=== PATIENT | female | born 1960 ===

== ENCOUNTER → 2024-05-04 | Outpatient (CLI) | payer OTHER | LOC: LAB SHORT 14:39 → LAB 14:39 | DX: M79.672 Pain in left foot (principal) | CPT/HCPCS: 84550; 85379 ==

== ENCOUNTER → 2024-05-18 | Outpatient (CLI) | payer OTHER | LOC: LAB 16:29 → LAB SHORT 16:29 | DX: N39.0 Urinary tract infection, site not specified (principal) | CPT/HCPCS: 87077; 87086; 87147; 87186 ==

== ENCOUNTER → 2024-09-24 | Outpatient (CLI) | payer OTHER | END | disposition home or self-care (01) | LOC: LAB SHORT 15:16 → LAB 15:16 | DX: N39.0 Urinary tract infection, site not specified (principal) | CPT/HCPCS: 87077; 87086; 87186 ==

== ENCOUNTER 2025-01-22 02:18 | Inpatient (IN) | payer OTHER ==
[~2025-01-22] VITALS: Ht 165.1 cm; Wt 54.8 kg
[2025-01-22 03:21] LABS: BASOPHILS ABSOLUTE AUTO 0.04 K/mm3 (0.00-0.23); BASOPHILS PERCENT AUTO 0 % (0-2); EOSINOPHILS ABSOLUTE AUTO 0.13 K/mm3 (0.00-0.68); EOSINOPHILS PERCENT AUTO 1 % (0-6); Hematocrit 31.6 % (33.0-51.0); Hemoglobin 10.5 g/dL (11.5-16.0); IMMATURE GRAN ABSOLUTE AUTO 0.08 K/mm3 (0.00-0.10); IMMATURE GRAN PERCENT AUTO 1 % (0-1); LYMPHOCYTES ABSOLUTE AUTO 0.79 K/mm3 (0.84-5.20); LYMPHOCYTES PERCENT AUTO 7 % (21-46); MONOCYTES ABSOLUTE AUTO 0.97 K/mm3 (0.16-1.47); MONOCYTES PERCENT AUTO 8 % (4-13); Mean Corpuscular HGB 28.3 pg (26.0-34.0); Mean Corpuscular HGB Conc 33.2 g/dL (31.5-36.5); Mean Corpuscular Volume 85 fL (80-100); NEUTROPHILS ABSOLUTE AUTO 9.78 K/mm3 (1.96-9.15); NEUTROPHILS PERCENT AUTO 83 % (41-73); Platelet Count 367 K/mm3 (150-400); RDW Coefficient Variation 12.1 % (11.7-14.2); RDW Standard Deviation 37.2 fL (35.1-46.3); Red Blood Cell Count 3.71 M/mm3 (3.80-5.20); White Blood Cell Count 11.79 K/mm3 (4.00-11.30)
[2025-01-22 03:28] LABS: Beta-hydroxybutyrate 3.2 mg/dL (0.2-2.8)
[2025-01-22 03:38] LABS: Alanine Aminotransfer (ALT/SGP 23 U/L (12-78); Albumin, Blood 2.1 g/dL (3.4-5.0); Albumin/Globulin Ratio 0.4 (0.8-1.8); Alk Phos 159 U/L (50-136); Anion Gap 11 mmol/L (3-11); Aspartate Aminotrans (AST/SGOT 21 U/L (12-37); Bilirubin, Total 0.3 mg/dL (0.1-1.0); Blood Urea Nitrogen 17 mg/dL (8-24); Bun/Creatinine Ratio 17.1 (12.0-20.0); CO2, Blood 26 mmol/L (21-32); Calcium, Blood 8.2 mg/dL (8.5-10.1); Chloride, Blood 93 mmol/L (98-108); Creatinine, Blood 0.99 mg/dL (0.40-1.00); Globulin, Blood 4.8 g/dL (2.2-4.0); Glomerular Filtration Rate 63 (60-); Glucose, Blood 805 mg/dL (70-99); Potassium, Blood 3.8 mmol/L (3.5-5.5); Sodium, Blood 126 mmol/L (136-145); Total Protein, Blood 6.9 g/dL (6.4-8.2)
[2025-01-22 03:49] LABS: Base Excess Venous 3.4 mmol/L; Bicarbonate Venous 26.6 mmol/L (24.0-30.0); PCO2 Venous 43.2 mmHg (38-42); pH Blood Venous 7.42 (7.34-7.37)
[2025-01-22 04:04] LABS: Source, Urine Clean Catch
[2025-01-22 04:06] LABS: Bilirubin, Urine Neg (Neg); Blood, Urine 2+ (Neg); Glucose Qualitative, Urine 4+ (Neg); Ketones, Urine Neg (Neg); Leukocyte Esterase, Urine 3+ (Neg); Nitrite, Urine Neg (Neg); Protein, Urine 3+ (Neg); Specific Gravity, Urine 1.005 (1.003-1.022); Urobilinogen, Urine NORM (Normal)
[2025-01-22] MEDS ORDERED: Insulin Regular 100 Unit/ML 1ML Dose IV ONE (04:40)
[2025-01-22] MEDS ORDERED: Potassium Chloride 20 MEQ TabCR PO ONE (04:40)
[2025-01-22 04:50] LABS: Appearance, Urine Turbid (Clear); Color, Urine Pale Yellow (P-Yellow)
[2025-01-22 04:52] LABS: Bacteria Mod /hpf; Squamous Epithelial Cells Few /hpf (Few); White Blood Cells, Urine TNTC /hpf (0-5); Yeast/Fungi Urine Few /hpf
[2025-01-22] MEDS ORDERED: CefTRIAXone Sodium 1,000 MG in NS 50 ML IV ONE (05:25)
[2025-01-22] MEDS ORDERED: Ipratropium/Albuterol SulF 2.5-0.5MG/3 ML Amp INH ONE (05:25)
[2025-01-22] MEDS ORDERED: NS 1,000 ML IV SCH ×3 (05:30→11:00)
[2025-01-22] MEDS ORDERED: FLU VACC TS2024-25(6MOS UP)/PF 45 MCG/0.5 ML SYRINGE IM ONE (05:55)
[2025-01-22] MEDS ORDERED: Ondansetron HCl 2 MG / ML 2ML Vial IV PRN (05:55)
[2025-01-22] MEDS ORDERED: Insulin Human Regular 100 UNIT in NS 100 ML IV SCH (06:15)
[2025-01-22] MEDS ORDERED: Albumin (Human) 25gm/100ml 100 ML IV ONE (06:15)
[2025-01-22 06:40] LABS: Bun/Creatinine Ratio 17.5 (12.0-20.0); Calcium, Blood 8.3 mg/dL (8.5-10.1); Creatinine, Blood 0.97 mg/dL (0.40-1.00); Potassium, Blood 3.7 mmol/L (3.5-5.5)
[2025-01-22] MEDS ORDERED: Insulin Glargine-Yfgn 100 Unit/mL 3 ML SYR SC SCH ×2 (07:00→21:00)
[2025-01-22] MEDS ORDERED: Insulin Human Lispro 100 Units/ML 3ML Syringe SC SCH ×3 (07:30→16:30)
[2025-01-22 08:37] LABS: Influenza A, PCR NEGATIVE (NEGATIVE); Influenza B, PCR NEGATIVE (NEGATIVE); Resp Syncytial Virus, PCR NEGATIVE (NEGATIVE); SARS-Cov-2 (COVID-19) PCR, MMC NEGATIVE (NEGATIVE)
[2025-01-22] MEDS ORDERED: Enoxaparin 40 MG/0.4 ML SYR SC SCH (09:00)
[2025-01-22 09:43] VITALS: BP 138/55
--- NOTE | 2025-01-22 10:49 | NUR ---
CALL TO DR CASAREZ TO DR. SHARPE REGARDING PATIENT CBG 480 AND AM INSULIN HELD IN ER. NEW ORDERS TO GIVE 5 UNITS HUMALOG NOW AND BOLUS REMAINING 800 ML OF MAINTENANCE NS BAG. DR. SHARPE WILL ADJUST INSULIN ORDERS IN JAN.
--- NOTE | 2025-01-22 11:22 | NUR ---
ADMISSION NOTE: PATIENT ARRIVED TO THE UNIT VIA RHANNA AT 0950 PATIENT DROWSY. BUT AROUSABLE. PATIENT WAS TRANSFERRED ONTO THE BED FROM THE [facility]. PUREWICK URINARY DEVICE SET UP AND FLUIDS RESTARTED AT 100ML/HR. PATIENT SETTLED IN ROOM AND CALL LIGHT PROVIDED. BLOOD SUGAR OBTAINED; 480. NO INSULIN PENS SET UP WITH PATIENT FROM ER (CONFIRMED WITH PHARMACY THAT PENS WERE SENT) NEW PENS REQUESTED. CALL MADE TO DR. SHARPE DUE TO HIGH BLOOD SUGAR AND PATIENT BEING SOMNULENT. NO ANSWER WENT TO LOCATE DR. SHARPE IN DICTATION ROOM, NO AVAILABLE. REPORTED CONCERNS TO MANAGER LEASING AND ADDITIONAL CALL WAS MADE TO DR. SHARPE. SEE MANAGER LEASING NOTE FROM DOCTOR CALL. PATIENT IN BED, SLEEPING, RESPIRATIONS EVEN AND UNLABORED, SHE IS AROUSABLE, BUT DOES NOT STAY AWAKE; QUICKLY TO FALL BACK ASLEEP. FOLLOWED ORDERS GIVEN BY DR. SHARPE.
[2025-01-22 12:37] LABS: Bun/Creatinine Ratio 15.2 (12.0-20.0); Calcium, Blood 8.4 mg/dL (8.5-10.1); Creatinine, Blood 1.05 mg/dL (0.40-1.00); Potassium, Blood 3.7 mmol/L (3.5-5.5)
[2025-01-22 15:44] VITALS: BP 140/65
[2025-01-22] MEDS ORDERED: ATORVASTATIN CA20 MG PO (16:28)
[2025-01-22] MEDS ORDERED: METF500 PO (16:28)
[2025-01-22] MEDS ORDERED: METO100ER PO (16:29)
[2025-01-22] MEDS ORDERED: PANTOPRAZOLE SO40 M2 PO (16:30)
[2025-01-22] MEDS ORDERED: NORTRIPTYLINE H2512 PO (16:30)
[2025-01-22] MEDS ORDERED: BASAGLAR K100 UNIT/3 SC (16:33)
--- NOTE | 2025-01-22 17:22 | NUR ---
SHIFT SUMMARY: PATIENT HAS BEEN IN BED RESTING MAJORITY OF THE TIME. REPORTS SHE IS FATIGUED. SHE IS EATING AND DRINKING, VOIDING. BSC WITH 1 PERSON. FAMILY AT BEDSIDE, PATIENT IS IN NEED OF CASE MANAGEMENT FOR EVALUATION OF PLACEMENT FOR CARE NEEDS THAT SEEM TO BE NO LONGER MET AT THE [facility] ALONE. CONCERNS WITH PATIENT'S COGNITION REQUESTING EVALUATION. SHE IS IN BED, CALL LIGHT WITHIN REACH, NO SIGNS OR SYMPTOMS OF DISTRESS, PLAN OF CARE ONGOING.
[2025-01-22 20:14] VITALS: BP 138/71
[2025-01-22] MEDS ORDERED: Nystatin 100,000 Unit/GM CREAM 15 GM TOP SCH (21:00)
[2025-01-23 01:02] VITALS: BP 139/59
[2025-01-23 05:06] VITALS: BP 135/59
[2025-01-23 05:42] LABS: BASOPHILS ABSOLUTE AUTO 0.04 K/mm3 (0.00-0.23); BASOPHILS PERCENT AUTO 0 % (0-2); EOSINOPHILS PERCENT AUTO 2 % (0-6); Hematocrit 26.3 % (33.0-51.0); Hemoglobin 8.7 g/dL (11.5-16.0); IMMATURE GRAN ABSOLUTE AUTO 0.09 K/mm3 (0.00-0.10); IMMATURE GRAN PERCENT AUTO 1 % (0-1); LYMPHOCYTES ABSOLUTE AUTO 2.09 K/mm3 (0.84-5.20); LYMPHOCYTES PERCENT AUTO 18 % (21-46); MONOCYTES ABSOLUTE AUTO 1.05 K/mm3 (0.16-1.47); MONOCYTES PERCENT AUTO 9 % (4-13); Mean Corpuscular HGB 28.6 pg (26.0-34.0); Mean Corpuscular HGB Conc 33.1 g/dL (31.5-36.5); Mean Corpuscular Volume 87 fL (80-100); Mean Platelet Volume 9.1 fL (9.1-12.4); NEUTROPHILS ABSOLUTE AUTO 8.43 K/mm3 (1.96-9.15); NEUTROPHILS PERCENT AUTO 71 % (41-73); Platelet Count 292 K/mm3 (150-400); RDW Coefficient Variation 12.4 % (11.7-14.2); RDW Standard Deviation 38.8 fL (35.1-46.3); Red Blood Cell Count 3.04 M/mm3 (3.80-5.20)
[2025-01-23] MEDS ORDERED: CefTRIAXone Sodium 1,000 MG in NS 100 ML IV SCH (06:00)
--- NOTE | 2025-01-23 06:03 | NUR ---
SHIFT SUMMARY PT ALERT AND ORIENTED TIMES . PT ADMITTED FOR SEVERE HYPERGLYCEMIA DUE TO DIABETES MELLITUS. PT HAS RASH IN GROIN AREA AND LABIA. ORDER FOR NYOSTATIN ON PT JAN. PT IS RECEPTIVE TO CARE. PT APPEARED TO SLEEP THROUGHOUT THE NIGHT WITHOUT ISSUES. BED IN LOW POSITION, CALL LIGHT WITHIN REACH, RAILS TIMES 2.
[2025-01-23 06:09] LABS: Albumin, Blood 1.9 g/dL (3.4-5.0); Albumin/Globulin Ratio 0.5 (0.8-1.8); Bilirubin, Total 0.2 mg/dL (0.1-1.0); Bun/Creatinine Ratio 14.8 (12.0-20.0); Calcium, Blood 8.1 mg/dL (8.5-10.1); Creatinine, Blood 1.08 mg/dL (0.40-1.00); Percent Saturation 7.4 % (15.0-50.0); Potassium, Blood 3.7 mmol/L (3.5-5.5); Total Protein, Blood 5.9 g/dL (6.4-8.2)
[2025-01-23 07:40] VITALS: BP 137/55
[2025-01-23] MEDS ORDERED: Pantoprazole Sodium 40 MG Tab PO SCH (09:00)
[2025-01-23] MEDS ORDERED: Metoprolol Succinate 50 MG TABCR PO SCH (09:00)
[2025-01-23] MEDS ORDERED: Atorvastatin 10 MG Tab PO SCH (09:00)
[2025-01-23] MEDS ORDERED: Nortriptyline HCl 25 MG Cap PO SCH (09:00)
[2025-01-23] MEDS ORDERED: Protein Supplement 30 ML UD PO SCH (09:00)
[2025-01-23] MEDS ORDERED: Sod Ferric Gluc Complx/Sucrose 125 MG in NS 100 ML IV SCH (09:07)
[2025-01-23] MEDS ORDERED: Docusate Sodium 100 MG Cap PO SCH (10:00)
[2025-01-23] MEDS ORDERED: Acetaminophen 325 MG TABLET PO PRN (10:55)
[2025-01-23 16:04] VITALS: BP 145/60
[2025-01-23] MEDS ORDERED: Ascorbic Acid 500 MG Tab PO SCH (17:00)
--- NOTE | 2025-01-23 18:15 | NUR ---
PT ALERT AND ORIENTED X 4, VSS, RA, SR IN 80S ON TELE. ELEMENTARY TUTOR REPORTED A PERIOD OF ST ELEVATION, MD NOTIFIED, EKG DONE AND GIVEN TO MD, PT DENIES C/P OR SOB. PT STATED THAT HER BOTTOM WAS LESS SORE TODAY AND THAT SHE THINKS THE CREAM IS HELPING. POC GLUCOSE 270S, TREATED WITH AC INSULIN. PT PLEASANT AND COOPERATIVE WITH CARE, CALLS APPROPRIATLY.
[2025-01-23 20:51] VITALS: BP 153/76
[2025-01-23] MEDS ORDERED: Sennosides 8.6 MG Tab PO SCH (21:00)
[2025-01-24 01:09] VITALS: BP 147/64
[2025-01-24 04:52] VITALS: BP 150/75
--- NOTE | 2025-01-24 05:23 | NUR ---
PER TELEMETRY, PT HAD INCREASED ST ELEVATION AT 0409. PT WAS HAVING ST ELEVATION ON PREVIOUS SHIFT, AND EKG WAS OBTAINED. PT WAS ASYMPTOMATIC. PT ALSO ASYMPTOMATIC THIS TIME, IN NO DISTRESS AND NO C/O CHEST PAIN OR DISCOMFORT. CALLED HOSPITALIST AT 0518. RECIEVED NO NEW ORDERS. RN WILL CONTINUE TO MONITOR.
[2025-01-24 06:10] LABS: Hematocrit 27.6 % (33.0-51.0); Mean Corpuscular HGB 28.7 pg (26.0-34.0); Mean Corpuscular HGB Conc 32.6 g/dL (31.5-36.5); Mean Corpuscular Volume 88 fL (80-100); Mean Platelet Volume 8.8 fL (9.1-12.4); Platelet Count 287 K/mm3 (150-400); RDW Coefficient Variation 12.4 % (11.7-14.2); RDW Standard Deviation 39.7 fL (35.1-46.3); Red Blood Cell Count 3.14 M/mm3 (3.80-5.20); White Blood Cell Count 10.61 K/mm3 (4.00-11.30)
[2025-01-24 06:31] LABS: Bun/Creatinine Ratio 16.9 (12.0-20.0); Calcium, Blood 8.1 mg/dL (8.5-10.1); Creatinine, Blood 1.3 mg/dL (0.40-1.00); Potassium, Blood 3.7 mmol/L (3.5-5.5)
[2025-01-24 08:14] VITALS: BP 156/70
[2025-01-24 17:14] VITALS: BP 178/70
--- NOTE | 2025-01-24 18:48 | NUR ---
SHIFT SUMMARY- PT ALERT AND ORIENTED X4, VERY SLOW TO RESPOND AND WITHDRAWN. SHE SEEMS TO PREFER TO LET OTHERS SPEAK FOR HER. SHE SCORED A 28/30 IN THE COG EVAL FROM OT TODAY. SHE LIVES AT THE [facility]. FAMILY IS CONCERNED WITH DISCHARGE PLANS. DICHARGE PLANNING MET WITH FAMILY TODAY.
[2025-01-24 19:43] VITALS: BP 172/77
[2025-01-24 23:16] VITALS: BP 127/101
[2025-01-25 05:29] VITALS: BP 165/71
--- NOTE | 2025-01-25 06:02 | NUR ---
SHIFT SUMMARY PT HAS BEEN RESTING IN BED OVERNIGHT. SHE HAS BEEN AOX4, CALM AND COOPERATIVE. SHE HAS BEEN NOTICEABLY MORE TIRED AND WEAKER THAN PREVIOUS NIGHT. PT WAS PREVIOUSLY 1[place] [facility] BUT HAS BEEN BEDREST OVERNIGHT. PT CALLS WHEN IN NEED OF TOILETING. SHE HAS BEEN ON TELEMETRY OVERNIGHT. PT HAS HAD NO COMPLAINTS. NO ACUTE EVENTS OVERNIGHT.
[2025-01-25 07:13] LABS: Bun/Creatinine Ratio 15.8 (12.0-20.0); Creatinine, Blood 1.39 mg/dL (0.40-1.00); Potassium, Blood 3.9 mmol/L (3.5-5.5)
[2025-01-25 07:31] VITALS: BP 144/59
[2025-01-25] MEDS ORDERED: OxyCODONE 5 mg/Acetamin 325 mg TABLET PO STA (09:46)
[2025-01-25 14:37] VITALS: BP 126/60
--- NOTE | 2025-01-25 16:37 | NUR ---
NO ACUTE CHANGES THIS SHIFT. PT REPORTS FEELING WEAK THIS SHIFT AND WORSE THAN YESTERDAY. ENCOURAGED PO INTAKE. PT REPORTING PAIN IN LEFT LOWER BACK. TREATED PER EMAR. PT STATES NOT MUCH RELIEF. UP TO CHAIR FOR LUNCH AND DINNER. UP TO BEDSIDE COMMODE WITH SBA AND FWW. PT ASLEEP FOR SEVERAL HOURS THIS SHIFT. ALERT AND ORIENTED X4, CALLS APPROPRIATELY.
[2025-01-25 20:09] VITALS: BP 140/54
[2025-01-26 02:39] VITALS: BP 136/58
--- NOTE | 2025-01-26 04:00 | NUR ---
SHIFT SUMMARY ADMITTED FOR HYPERGLYCEMIA - NOW RESOLVED. FULL CODE. IV ANTIB RX ARE SCHEDULED. A&O X3, ON RA. SHE HAD SEVERE WEAKNESS THIS SHIFT AND COULD NOT PIVOT TO THE BSC. ACHS CBG'S - MEDIUM SS. ADA DIET. TELEMETRY: NSR @ 88 BPM. PLAN IS FOR DC W/HH WHEN STABLE FOR DC.
[2025-01-26 07:03] LABS: Bun/Creatinine Ratio 16.5 (12.0-20.0); Creatinine, Blood 1.58 mg/dL (0.40-1.00)
[2025-01-26 07:12] VITALS: BP 156/65
--- NOTE | 2025-01-26 08:05 | NUR ---
PT DECLINES TO SIT UP FOR BREAKFAST. SHE IS A 2 PERSON MAX ASSIST TO THE BEDSIDE COMMODE. PT REPORTS BACK PAIN AND SEVERE WEAKNESS. DR. SHARPE NOTIFIED OF THIS ASSESSMENT.
[2025-01-26] MEDS ORDERED: Ondansetron 4 MG SoluTab SL ONE (10:40)
[2025-01-26] MEDS ORDERED: Magnesium Citrate 300 ML BTL PO ONE (10:40)
[2025-01-26 15:16] VITALS: BP 167/68
[2025-01-26] MEDS ORDERED: OxyCODONE 5 mg/Acetamin 325 mg TABLET PO STA (16:13)
[2025-01-26] MEDS ORDERED: NS 1,000 ML IV SCH (16:15)
[2025-01-26] MEDS ORDERED: OxyCODONE 5 mg/Acetamin 325 mg TABLET PO PRN (17:00)
[2025-01-26] MEDS ORDERED: Polyethylene Glycol 3350 17 gm PO SCH (19:00)
--- NOTE | 2025-01-26 19:26 | NUR ---
PT CONTINUES TO C/O OF GENERALIZED FATIGUE AND NOT FEELING WELL. MD AWARE. PT REFUSING PRN BOWEL CARE. EDUCATION PROVIDED. POOR PO INTAKE. PT HAS 600CC URNINE IN BLADDER POST VOID. MD ORDERED STRAIGHT CATH AND Q6 HR BLADDER SCANS. IV FLUIDS STARTED. PT DECLINED TO GET UP FOR LUNCH AND DINNER. ATE 10% LUNCH AND DECLINED DINNER. MD AWARE.
[2025-01-26 19:38] VITALS: BP 107/50
[2025-01-27 00:05] VITALS: BP 120/54
[2025-01-27 04:03] VITALS: BP 132/68
--- NOTE | 2025-01-27 04:13 | NUR ---
SHIFT SUMMARY ADMITTED FOR HYPERGLYCEMIA-NOW RESOLVED. UTI/BACTEREMIA. FULL CODE. PLAN IS FOR DC W/HH VS. AWAITING MEDICAID - PLACEMENT. TELEMETRY: NSR @ 68 BPM. ON RA. ACHS - MEDIUM SS. ADA DIET. IV FLUID INFUSING. SHE IS MORE ALERT FOR ME THIS SHIFT. THIS SHIFT SHE IS A 1 ASSIST TO BSC. TYLENOL GIVEN THIS SHIFT. SHE WAS ABLE TO EMPTY HER BLADDER WHEN SHE WAS GOTTEN UP TO SIT ON THE BSC. IV ANTIB RX ARE SCHEDULED. SHE IS VERY WEAK STILL
[2025-01-27 06:09] LABS: Hematocrit 25.6 % (33.0-51.0); Hemoglobin 8.3 g/dL (11.5-16.0); Mean Corpuscular HGB 28.7 pg (26.0-34.0); Mean Corpuscular HGB Conc 32.4 g/dL (31.5-36.5); Mean Corpuscular Volume 89 fL (80-100); Platelet Count 226 K/mm3 (150-400); RDW Coefficient Variation 12.7 % (11.7-14.2); RDW Standard Deviation 41.1 fL (35.1-46.3); Red Blood Cell Count 2.89 M/mm3 (3.80-5.20); White Blood Cell Count 13.57 K/mm3 (4.00-11.30)
[2025-01-27 06:34] LABS: Bun/Creatinine Ratio 18.6 (12.0-20.0); Calcium, Blood 7.4 mg/dL (8.5-10.1); Creatinine, Blood 1.77 mg/dL (0.40-1.00)
[2025-01-27 07:09] VITALS: BP 126/57
[2025-01-27] MEDS ORDERED: Iron Polysaccharides Complex 150 MG Cap PO SCH (14:00)
[2025-01-27] MEDS ORDERED: Citalopram Hydrobromide 10 MG TAB PO SCH (14:00)
--- NOTE | 2025-01-27 15:01 | NUR ---
ASSESSED PATIENT AND DISCUSSED WITH BEDSIDE RN. DISCUSSED CASE WITH PATTERNMAKER APPRENTICE WOOD. CALLED AND SPOKE TO SON ON THE PHONE DISCUSSED POLST. HE DOES NOT THINK THAT SHE HAS EVER FILLED ONE OUT BEFORE. HE HAS BEEN COMING TO THE HOSPITAL MOST DAYS. DISCUSSED COMPLETING ONE BEFORE SHE DISCHARGES.
[2025-01-27] MEDS ORDERED: Polyethylene Glycol 3350 17 gm PO PRN (16:40)
[2025-01-27] MEDS ORDERED: Bisacodyl 5 MG TabEC PO PRN (16:45)
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
--- NOTE | 2025-01-27 19:23 | NUR ---
SHIFT SUMMARY PATIENT A/OX4, ABLE TO MAKE NEEDS KNOWN. LOW MITIVATION NOTED, MINIMAL APPETITED AND PATIENT TEARFUL AND WITHDRAWN THROUGHOUT SHIFT. PATIENT WITH SOCIAL AND CASE MANAGEMENT NEEDS, SEE PREVIOUS NO CONTACT NOTE FOR PATIENT'S SON, MARLON. PATIENT WITH NO BOWEL MOVEMENT SINCE 01/22, MD NOTIFIED AND PRN ADMINISTERED PER JAN. PATIENT ALSO ON MULTIPLE SCHEDULED BOWEL MEDS, BUT HAS HAD MINIMAL PO INTAKE. PALLIATIVE CARE CONSULTED AND CALLED TO BEDSIDE THIS AM. IV FLUIDS INFUSING PER JAN. PATIENT STARTED ON CELEXA AND MEGACE TODAY. NO OTHER CONCERNS AT THIS TIME.
[2025-01-27 20:10] VITALS: BP 122/61
[2025-01-27 23:50] VITALS: BP 155/72
[2025-01-28 03:52] VITALS: BP 212/111
[2025-01-28] MEDS ORDERED: HydrALAZINE HCl 20 MG / ML 1ML Vial IV PRN (04:10)
[2025-01-28 04:50] VITALS: BP 152/78
[2025-01-28 07:13] VITALS: BP 132/61
--- NOTE | 2025-01-28 07:45 | NUR ---
DIRECTOR FOUNDATION SUMMARY PT DEVELOPED A FEVER OVERNIGHT AND WAS SYMPTOMATIC WITH CHILLS AND SHAKING. AT THE SAME TIME HER BLOOD PRESSURE SPIKED TO SBP 211. PT GIVEN TYLENOL TO HELP BREAK FEVER AND DR. VALDOVINOS NOTIFIED/PRN HYDRALAZINE ORDERED AND GIVEN. SBP IMPROVED TO THE 130S-150S AND TEMPERATURE RETURNED TO NORMAL AFTER THE TYLENOL. PT CONTINUES TO SHOW POOR MOTIVATION TO PERFORM ADLS AND SHOWS A POOR APPETITE AND UNWILLINGNESS TO EAT A SNACK OVERNGIHT.
[2025-01-28 12:34] VITALS: BP 120/55
--- NOTE | 2025-01-28 14:40 | NUR ---
SHIFT SUMMARY: PATIENT A/OX3, PLEASANT AND COOPERATIVE c CARE. PATIENT DENIES CP/PRESSURE, SOB, N/V AND DIZZINESS. PATIENT ON TELE, SR HR IN THE HIGH 70'S BPM, NO FEVER THIS SHIFT. PATIENT SAT UP IN THE CHAIR FOR ABOUT 3 HRS THIS SHIFT. PATIENT REPORTS FAIR APPETITE, PUREWICK IN PLACED FOR INCONTINENT VOID. PATIENT HAS HAD NO BM, RECEIVED BOWEL CARE THIS SHIFT PER ORDER. PATIENT HAD AN INTERVIEWED THIS AM kali CASTREJON FROM [facility]. PATIENT RECEIVED IV ABX/SCHEDULED MEDS PER EMAR. VITAL SIGNS REVIEWED. PIV TO L WRIST INFUSING NS AT 100 MLS/HR. PATIENT TRANSFERRED TO 341, REPORTS GIVEN TO ARIANA HENRY. PATIENT LEFT THE ROOM AT 1440 VIA BED INCLUDING HER PERSONAL BELONGINGS.
[2025-01-28 16:18] VITALS: BP 133/64
--- NOTE | 2025-01-28 16:28 | NUR ---
DISCUSSED CASE WITH MULTIDICIPLINARY TEAM. PATIENT WAS REQUESTING THAT HER SON AND HIS NOT BE ABLE TO VISIT HER OR MAKE MEDICAL DECISIONS ON HER BEHALF. PC WILL EDUCATE ON ADVANCE DIRECTIVE AND POLST.
--- NOTE | 2025-01-28 16:52 | NUR ---
SHIFT SUMMARY PT TRANSFERED FROM ROOM 351 TO ROOM 341 THIS SHIFT. PT CONT LEVEL OF CARE WITH NO ACUTE CHANGES NOTED. HOWEVER PT TRANSFERED ROOM SHE WOULD LIKE TO REMAIN CONFIDENTIAL AND DOES NOT WANT ANY INFO GIVEN TO ANY FAMILY. PT DENIES WANTING TO SET UP A CODE WORD SHE ALSO STATED SHE DOESNT WANT ANY VISITORS AT ALL. PT CONT TO AWAIT INSURANCE AUTH AND HAS BEEN ACCEPTED AT [facility]. PT HAS RECIEVED PAIN MEDICATION X1 THIS SHIFT. PT IS A&O X4 AND ASSIST X1-2. PT HAS PURWICK IN PLACE.
[2025-01-28 19:45] VITALS: BP 133/64
[2025-01-28] MEDS ORDERED: Insulin Glargine-Yfgn 100 Unit/mL 3 ML SYR SC SCH (21:00)
[2025-01-29 01:17] VITALS: BP 170/68
--- NOTE | 2025-01-29 04:18 | NUR ---
SHIFT SUMMARY PATIENT HAD NO ACUTE CHANGES. ALERT ORIENTED AND 2 ASSIST TO BSC. PUREWICK IN PLACE. DENIES CHEST PAIN, SOB, AND N/V. VSS/AFEBRILE. PIV INTACT. NS INFUSING @ 100 mL/HR. TELE MONITOR SR 75. CBG 282. REPORTED BACK PAIN X ONE AND PERCOCET GIVEN PER EMAR. COOPERATIVE WITH CARE. CALL LIGHT IN REACH. BED IN LOWEST POSITION. WILL CONTINUE TO MONITOR UNTIL DAY SHIFT NURSE ASSUMES CARE.
[2025-01-29 04:23] VITALS: BP 137/63
[2025-01-29 07:33] VITALS: BP 150/73
[2025-01-29] MEDS ORDERED: Amoxicillin 500 MG Cap PO SCH (09:00)
--- NOTE | 2025-01-29 09:00 | NUR ---
pt laying in bed, sleepy this am, states didn't sleep well last night does wake easily, lungs are clear t/o, resp even and unlabored, on r/a, no cough noted, hrr, tele in place running sr per monitor, see strip, no edema noted, ppp+1, cap refill<3 sec, vs stable, afebrile, piv to lw site is clear and patent, btx4, abd flat soft nontender, voids via purwick at this time, skin has scattered bruising, pink coccyx otherwise c/w/d/, maew, weak, rené, call light in reach.
--- NOTE | 2025-01-29 15:09 | NUR ---
pt requested to get back to bed after sitting up for lunch, did not eat anything, but agreed to take an ensure, ordered one from dietary. also asked for pain meds, this was given. call light in reach.
[2025-01-29 16:28] VITALS: BP 158/69
--- NOTE | 2025-01-29 18:43 | NUR ---
pt attempting to get oob, states she needs to void, but has a purwick in place, attempted to assisst her to the chair, she would not move her feet after getting her to standing position, lab nurse came in and we were able to pivot her to the chair, no further changes this shift, call light in reach.
[2025-01-29 20:06] VITALS: BP 165/60
[2025-01-29] MEDS ORDERED: Ondansetron HCl 2 MG / ML 2ML Vial IV PRN (20:20)
--- NOTE | 2025-01-30 04:19 | NUR ---
SHIFT SUMMARY PATIENT HAD TEMP 101.5 AT SHIFT CHANGE, BACK PAIN, AND ALSO NAUSEA. PERCOCET GIVEN FOR PAIN/TEMP. ROOM TEMP LOWER AND MULTIPLE BLANKETS REMOVED. TEMP REASSESSED 97.8. IV ZOFRAN GIVEN FOR NAUSEA AND RESOLVED. DENIES CHEST PAIN AND SOB. CBG 202. HALLUCINATING FIRST PART OF SHIFT AND RESOLVED. PATIENT LATER ABLE TO SLEEP MOST OF THE SHIFT. CALL LIGHT IN REACH. BED IN LOWEST POSITION. WILL CONTINUE TO MONITOR UNTIL DAY SHIFT NURSE ASSUMES CARE.
[2025-01-30 04:53] VITALS: BP 126/66
[2025-01-30 05:29] LABS: Hematocrit 26.2 % (33.0-51.0); Hemoglobin 8.2 g/dL (11.5-16.0); Mean Corpuscular HGB Conc 31.3 g/dL (31.5-36.5); Mean Corpuscular Volume 89 fL (80-100); Mean Platelet Volume 9.5 fL (9.1-12.4); Platelet Count 190 K/mm3 (150-400); RDW Coefficient Variation 13.2 % (11.7-14.2); RDW Standard Deviation 43.2 fL (35.1-46.3); Red Blood Cell Count 2.93 M/mm3 (3.80-5.20)
[2025-01-30 06:01] LABS: Albumin, Blood 1.4 g/dL (3.4-5.0); Anion Gap 10 mmol/L (3-11); Blood Urea Nitrogen 52 mg/dL (8-24); CO2, Blood 22 mmol/L (21-32); Calcium, Blood 7.5 mg/dL (8.5-10.1); Chloride, Blood 107 mmol/L (98-108); Creatinine, Blood 1.53 mg/dL (0.40-1.00); Glomerular Filtration Rate 38 (60-); Glucose, Blood 241 mg/dL (70-99); Magnesium, Blood 1.9 mg/dL (1.6-2.4); Phosphorus, Blood 2.3 mg/dL (2.5-4.9); Potassium, Blood 4.9 mmol/L (3.5-5.5); Sodium, Blood 134 mmol/L (136-145)
[2025-01-30] MEDS ORDERED: Sodium Phosphate Mono/Dibasic 250 MG Tab PO SCH (08:00)
[2025-01-30 08:33] VITALS: BP 158/77
[2025-01-30] MEDS ORDERED: Doxycycline Hyclate 100 MG TAB PO SCH (09:00)
--- NOTE | 2025-01-30 09:00 | NUR ---
pt sitting up on side of bed, a/ox3, forgetful, was calling for a person yesterday that isn't here, follows commands well, lungs are clear t/o, resp even and unlabored, no cough noted, on r/a, hrr, tele in place running sr per monitor, see strip, +1 edema noted to b/l le, ppp+1, cap refill<3 sec, vs stable, afebrile, piv to lw, site is clear and patent, btx4, abd flat soft nontender, voids via purwick at this time, skin c/w/d, maew, general weakness, rené, call light in reach.
[2025-01-30] MEDS ORDERED: Megestrol Acetate Susp 400MG/10ML UDC PO SCH (10:00)
[2025-01-30 15:49] VITALS: BP 117/58
--- NOTE | 2025-01-30 18:41 | NUR ---
pt appetite remains poor, is drinking ensures, have encouraged her to drink fluids, sat up on the side of the bed for meals, no further changes this shift. call light in reach.
[2025-01-30 20:16] VITALS: BP 123/63
--- NOTE | 2025-01-31 04:04 | NUR ---
SHIFT SUMMARY PATIENT USING PUREWICK. URINE CLOUDY YELLOW WITH WHITE SEDIMENT IN BOTTOM OF CONTAINER . AXOX 3 AND BEDREST. USES BEDPAN. DENIES CHEST PAIN, SOB, AND N/V. VSS/AFEBRILE . CBG 355. SLEPT MOST OF THE SHIFT. CALL LIGHT IN REACH. BED IN LOWEST POSITION. WILL CONTINUE TO MONITOR UNTIL DAY SHIFT NURSE ASSUMES CARE.
[2025-01-31 05:07] VITALS: BP 136/64
[2025-01-31 05:24] LABS: Hematocrit 25.1 % (33.0-51.0); Hemoglobin 7.9 g/dL (11.5-16.0); Mean Corpuscular HGB 27.9 pg (26.0-34.0); Mean Corpuscular HGB Conc 31.5 g/dL (31.5-36.5); Mean Corpuscular Volume 89 fL (80-100); Mean Platelet Volume 9.6 fL (9.1-12.4); Platelet Count 245 K/mm3 (150-400); RDW Coefficient Variation 13.4 % (11.7-14.2); RDW Standard Deviation 43.8 fL (35.1-46.3); Red Blood Cell Count 2.83 M/mm3 (3.80-5.20); White Blood Cell Count 17.04 K/mm3 (4.00-11.30)
[2025-01-31 05:56] LABS: Albumin, Blood 1.3 g/dL (3.4-5.0); Anion Gap 10 mmol/L (3-11); Blood Urea Nitrogen 72 mg/dL (8-24); Bun/Creatinine Ratio 50.7 (12.0-20.0); CO2, Blood 25 mmol/L (21-32); Calcium, Blood 7.4 mg/dL (8.5-10.1); Chloride, Blood 108 mmol/L (98-108); Creatinine, Blood 1.42 mg/dL (0.40-1.00); Glomerular Filtration Rate 41 (60-); Glucose, Blood 377 mg/dL (70-99); Phosphorus, Blood 2.8 mg/dL (2.5-4.9); Potassium, Blood 4.6 mmol/L (3.5-5.5); Sodium, Blood 138 mmol/L (136-145)
[2025-01-31 07:38] VITALS: BP 155/74
[2025-01-31] MEDS ORDERED: Amoxicillin/Clavulanate K 875 MG Tab PO SCH (09:00)
[2025-01-31 16:08] VITALS: BP 178/70
--- NOTE | 2025-01-31 18:10 | NUR ---
SHIFT SUMMARY PT CONT LEVEL OF CARE WITH NO ACUTE CHANGES NOTED. PT NOTED TO BE A&O X3 AND ASSIST X1 WITH FWW. PT NOTED TO HAVE 4 BMS THIS SHIFT.
[2025-01-31 19:48] VITALS: BP 129/68
[2025-02-01 03:21] VITALS: BP 146/73
--- NOTE | 2025-02-01 04:52 | NUR ---
SHIFT SUMMARY; PATIENT SLEPT IN LONG INTERVALS TONIGHT. GAVE PRN OXY AT HS UP TO BSC TWICE. CBG STILL HIGH.
[2025-02-01 05:50] LABS: Hemoglobin 8.1 g/dL (11.5-16.0); Mean Corpuscular HGB 27.8 pg (26.0-34.0); Mean Corpuscular HGB Conc 31.2 g/dL (31.5-36.5); Mean Corpuscular Volume 89 fL (80-100); Mean Platelet Volume 9.3 fL (9.1-12.4); Platelet Count 259 K/mm3 (150-400); RDW Coefficient Variation 13.2 % (11.7-14.2); RDW Standard Deviation 43.6 fL (35.1-46.3); Red Blood Cell Count 2.91 M/mm3 (3.80-5.20); White Blood Cell Count 11.34 K/mm3 (4.00-11.30)
[2025-02-01 06:10] LABS: Albumin, Blood 1.5 g/dL (3.4-5.0); Anion Gap 9 mmol/L (3-11); Blood Urea Nitrogen 60 mg/dL (8-24); Bun/Creatinine Ratio 52.6 (12.0-20.0); CO2, Blood 26 mmol/L (21-32); Calcium, Blood 7.7 mg/dL (8.5-10.1); Chloride, Blood 111 mmol/L (98-108); Creatinine, Blood 1.14 mg/dL (0.40-1.00); Glomerular Filtration Rate 53 (60-); Glucose, Blood 159 mg/dL (70-99); Magnesium, Blood 1.8 mg/dL (1.6-2.4); Phosphorus, Blood 3.7 mg/dL (2.5-4.9); Potassium, Blood 4.3 mmol/L (3.5-5.5); Sodium, Blood 142 mmol/L (136-145)
[2025-02-01 07:53] VITALS: BP 152/63
[2025-02-01 15:26] VITALS: BP 164/73
[2025-02-01] MEDS ORDERED: Insulin Human Lispro 100 Units/ML 3ML Syringe SC SCH ×2 (16:30→17:30)
--- NOTE | 2025-02-01 18:14 | NUR ---
SHIFT SUMMARY PT IS A/OX3-4. NO ACUTE CHANGES THROUGHOUT THIS SHIFT. 1 PERSON ASSIST TO THE BATHROOM. PT ENCOURAGED UP WITH MEALS AND PREFORMING ADL'S. PT REPORTING LEFT FLANK PAIN, RECIEVING PRN PERCOCET PER MAR. PT CALLS APPROPRIATELY USING THE CALL LIGHT.
[2025-02-01 19:29] VITALS: BP 174/71
[2025-02-01] MEDS ORDERED: Insulin Glargine-Yfgn 100 Unit/mL 3 ML SYR SC SCH (21:00)
--- NOTE | 2025-02-02 04:44 | NUR ---
SHIFT SUMMARY NOC PT A/O X 3-4. PLEASANT AND COOPERATIVE WITH CARE. BP ELEVATED AND PT GIVEN IV HYDRALAZINE. HS CBG 243 AND PT GIVEN SCEHDULED 15 UNITS LONG ACTING INSULIN. PT BACK PAIN BEING MANAGED PER EMAR. PT IS 1PA/FWW TO BSC AND BATHROOM. PT CURRENTLY RESTING WITH BED IN LOWEST POSITION, AND CALL LIGHT WITHIN REACH.
[2025-02-02 04:54] VITALS: BP 170/68
[2025-02-02 05:33] LABS: BASOPHILS ABSOLUTE AUTO 0.04 K/mm3 (0.00-0.23); BASOPHILS PERCENT AUTO 0 % (0-2); EOSINOPHILS ABSOLUTE AUTO 0.19 K/mm3 (0.00-0.68); EOSINOPHILS PERCENT AUTO 2 % (0-6); Hematocrit 26.1 % (33.0-51.0); Hemoglobin 8.2 g/dL (11.5-16.0); IMMATURE GRAN ABSOLUTE AUTO 0.24 K/mm3 (0.00-0.10); IMMATURE GRAN PERCENT AUTO 2 % (0-1); LYMPHOCYTES ABSOLUTE AUTO 1.93 K/mm3 (0.84-5.20); LYMPHOCYTES PERCENT AUTO 20 % (21-46); MONOCYTES ABSOLUTE AUTO 0.58 K/mm3 (0.16-1.47); MONOCYTES PERCENT AUTO 6 % (4-13); Mean Corpuscular HGB 27.6 pg (26.0-34.0); Mean Corpuscular HGB Conc 31.4 g/dL (31.5-36.5); Mean Corpuscular Volume 88 fL (80-100); Mean Platelet Volume 8.7 fL (9.1-12.4); NEUTROPHILS ABSOLUTE AUTO 6.88 K/mm3 (1.96-9.15); NEUTROPHILS PERCENT AUTO 70 % (41-73); Platelet Count 313 K/mm3 (150-400); RDW Coefficient Variation 13.2 % (11.7-14.2); RDW Standard Deviation 42.5 fL (35.1-46.3); Red Blood Cell Count 2.97 M/mm3 (3.80-5.20); White Blood Cell Count 9.86 K/mm3 (4.00-11.30)
[2025-02-02 05:50] LABS: Calcium, Blood 7.8 mg/dL (8.5-10.1); Creatinine, Blood 0.91 mg/dL (0.40-1.00); Potassium, Blood 4.2 mmol/L (3.5-5.5)
[2025-02-02 07:48] VITALS: BP 148/58
[2025-02-02 16:38] VITALS: BP 128/58
[2025-02-02] MEDS ORDERED: Insulin Human Lispro 100 Units/ML 3ML Syringe SC SCH (17:30)
--- NOTE | 2025-02-02 19:18 | NUR ---
SHIFT SUMMARY PATIENT A/OX4, ABLE TO MAKE NEEDS KNOWN. ANXIOUS INTERMITTENTLY THIS SHIFT, WITHDRAWN BUT COOPERATIVE WITH CARE. PERCOCET ADMINISTERED FOR BACK PAIN X3 THIS SHIFT. INSULIN ADJUSTED THIS EVENING. PATIENT PENDING GUARDIANSHIP AND APS INVOLVED FOR CONCERNS OF FINANCIAL EXPLOITATION WITH PATIENT'S FIARABELLA FULTON, AND CHILDREN, MARLON AND DEV. CASE MANAGEMENT ASSISTED THIS MORNING WHEN PATIENT WAS ATTEMPTING TO HAVE NEW DEBIT CARD SENT TO HER FIANCE ARABELLA, IN [place]. PATIENT PARTICIPATED IN PHYSICAL THERAPY THIS EVENING. DR. WASHINGTON ASSESSED PATIENT THIS AFTERNOON AND GUARDIANSHIP LETTER IN PATIENT'S PAPER CHART. NO OTHER CONCERNS AT THIS TIME, BEDSIDE SHIFT REPORT PROVIDED TO MARKET EDITOR RN.
[2025-02-02 19:33] VITALS: BP 130/59
[2025-02-02] MEDS ORDERED: TraZODone HCl 50 MG Tab PO SCH (21:00)
--- NOTE | 2025-02-02 23:42 | NUR ---
ASSUMPTION OF CARE I HAVE RECEIVED HANDOFF FOR THIS PATIENT AND I AM TAKING OVER HER CARE AT THIS TIME.
[2025-02-03 03:19] VITALS: BP 161/77
--- NOTE | 2025-02-03 04:08 | NUR ---
SHIFT SUMMARY ADMITTED FOR UTI, HYPERGLYCEMIA. FULL CODE. PO ANTIB RX ARE SCHEDULED. AWAITING PLACEMENT AND INSURANCE AUTHORIZATION. SHE IS A&O X3-4, NEW ONSET DEMENTIA IS REPORTED. ON RA, ADA DIET, STANDBY ASSIST -BRP. ACHS CBG'S - LOW SS.
[2025-02-03 07:44] VITALS: BP 164/74
[2025-02-03] MEDS ORDERED: Lisinopril 5 MG Tab PO SCH (13:00)
[2025-02-03 15:04] VITALS: BP 114/54
--- NOTE | 2025-02-03 18:38 | NUR ---
ASSUMED PT CARE 1330. HAS BEEN PLEASANT TODAY. NO VISITORS NOTED. NO C/O PAIN. SITTING IN CHAIR EATING DINNER AT THIS TIME. MEDS PER EMAR. PENDING PLACEMENT AND GUARDIANSHIP. NO NEW CONCERNS NOTED. BED IN LOW POSITION, CALL LITE IN REACH, CALLS APPROP
[2025-02-03 19:20] VITALS: BP 159/68
[2025-02-03] MEDS ORDERED: TraZODone HCl 100 MG Tab PO SCH (21:00)
[2025-02-04 04:35] VITALS: BP 160/76
--- NOTE | 2025-02-04 06:00 | NUR ---
SHIFT SUMMARY PT ALERT ORIENTED WITH CONFUSION AND FORGETFULNESS. SHE HAS A HX OF DEMENTIA. SHE HAS BEEN GETTING UP TO THE COMMODE WITH 1 PERSON SBA. NO C/O PAIN THIS SHIFT. DID HAVE SOME INCONTINENCE OF BOWELS. REMAINS ON AUGMENTIN AND DOXYCLINE FOR UTI. FS DONE AC AND HS WAS 224. VSS THIS SHIFT SATTING AT 99%. HER BP WAS SLIGHTLY ELEVATED AT 160/76. SHES AWAITING GUARDIANSHIP SO SHE CAN BE PLACED IN A SNF. SHES A CONFIDENTIAL PATIENT. RESTING IN BED AT THIS TIME WITH CALL LIGHT IN REACH
[2025-02-04 07:13] VITALS: BP 161/72
--- NOTE | 2025-02-04 08:58 | NUR ---
PER DR SHARPE, PT NOT EATING BREAKFAST. HOLD SHORT ACTING 10 UNITS INSULIN, OAKY TO GIVE LONG ACTING 15 UNITS.
[2025-02-04 16:52] VITALS: BP 177/80
--- NOTE | 2025-02-04 17:49 | NUR ---
PT PLEASANT TODAY. SKIPPED AM AND LUNCH MEALS TODAY. HELD INSULIN AFTER DISCUSSION WITH DR SHARPE. PT AGREED TO EAT DINNER. NEW IV PLACED TODAY. NO OTHER CONCERNS NOTED TODAY. BED IN LOW POSITION, CALL LITE IN REACH, CALLS APPROP
--- NOTE | 2025-02-04 18:51 | NUR ---
PT ATE 1/2 OF DINNER. ALL OF ENSURE. GAVE 5U INSULIN PER PHONE CALL WITH DR SHARPE.
[2025-02-04 19:46] VITALS: BP 150/65
[2025-02-04] MEDS ORDERED: TraZODone HCl 100 MG Tab PO SCH (21:00)
[2025-02-05 02:29] VITALS: BP 146/67
--- NOTE | 2025-02-05 05:40 | NUR ---
SHIFT SUMMARY PT ALERT AND ORIENTED TIMES 4. PT IS ADMITTED FOR COPD AND SOB. PT IS NOT ON OXYGEN. PT IS STAND BY ASSIST TO TOILET. PT HAS HX OF EMPHAZEMA AND TAKES MEDICATION WITH APPLESAUCE. PT HAD 10 BEATS SVT. RATE THEN WENT BACK TO SINUS RHYTHM. 86. CALL LIGHT WITHIN REACH, RAILS TIMES 2, BED IN LOW POSITION.
[2025-02-05 07:17] VITALS: BP 142/62
[2025-02-05] MEDS ORDERED: Insulin Human Lispro 100 Units/ML 3ML Syringe SC SCH (09:40)
--- NOTE | 2025-02-05 09:53 | NUR ---
NOTE: SPOKE WITH DR. SHARPE, PT ATE HALF OF HER BREAKFAST. SHORT ACTING SCHEDULED INSULIN DECREASED TO 5 UNITS BEFORE MEALS. PER DR. SHARPE, OKAY TO ALSO GIVE THE LONG ACTING INSULIN.
[2025-02-05 16:14] VITALS: BP 148/65
--- NOTE | 2025-02-05 17:44 | NUR ---
SHIFT SUMMARY PT AOX3, CONFUSION AT TIMES. REPOSITIONS SELF IN BED. UP TO THE CHAIR FOR LUNCH. LITTLE MOTIVATION BUT MOVES WELL IN BED. NO ACUTE COMPLAINTS. BRIEF CHANGED NEEDED. CALL LIGHT WITHIN REACH, BED LOCKED AND IN THE LOWEST POSITION. WILL REPORT TO ONCOMING NURSE.
[2025-02-05 20:11] VITALS: BP 146/64
[2025-02-06 03:30] VITALS: BP 142/65
--- NOTE | 2025-02-06 05:40 | NUR ---
SHIFT SUMMARY PT ALERT AND ORIENTED TIMES 3. PT IS FULL CODE, ADMITTED FOR HYPERGLYCEMIA AND UTI. PT HAS DM2, HTN, AND DEPRESSION. PT IS RECEPTIVE TO CARE AND ABLE TO MAKE NEEDS KNOWN. PT IS ON ROOM AIR, NO TELE AND IV IN RIGHT FOREARM. PT IS TIMES ONE ASSIST. PT HAS REDNESS IN HER ELIZA AREA TREATED WITH NISTATIN. BED IN LOW POSITION, CALL LIGHT WITHIN REACH, RAILS TIMES 2,
[2025-02-06 08:03] VITALS: BP 134/60
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
[2025-02-06 15:05] VITALS: BP 116/59
--- NOTE | 2025-02-06 18:55 | NUR ---
SHIFT SUMMARY PT AOX3, 1-2 P TO THE CHAIR OR COMMODE. NO ACUTE CHANGES THIS SHIFT. PT REPOSITIONS SELF IN BED. MEPLEX APPLIED TO COCCYX. BRIEF CHANGED NEEDED. ENCOURAGED PT TO AMBULATE AND GET UP TO THE CHAIR WITH MEALS. CALL LIGHT WITHIN REACH, BED LOCKED AND IN THE LOWEST POSITION. WILL REPORT TO ONCOMING NURSE.
[2025-02-06 20:30] VITALS: BP 143/58
--- NOTE | 2025-02-06 22:16 | NUR ---
encouraged pt to use bsc, pt declined immediatly. informed her of the benefits of getting up and using her body.
[2025-02-07 04:43] VITALS: BP 130/63
[2025-02-07 07:11] VITALS: BP 140/67
[2025-02-07] MEDS ORDERED: Metoclopramide HCl 5MG / ML 2ML Vial IV ONE (09:55)
--- NOTE | 2025-02-07 15:23 | NUR ---
SHIFT SUMMARY- PT HAS BEEN UP IN THE RECLINER FOR 2 MEALS SO FAR TODAY. SHE SEEMS AGREEABLE WITH CARE. SHE WAS SEEN BY APS TODAY WELL. SHE SEEMS VERY DETACHED AND WITHDRAWN, NOT INVESTED IN HER HEALTH, HOWEVER SHE PERFORMS TASKS WHEN ASKED. PT IS COOPERATIVE WITH CARE, ALERT AND ORIENTED TO SELF AND PLACE AND TIME. SHE HAS HER PHONE AND HAS BEEN COMMUNICATING WITH SOMEONE VIA SOME SORT OF MESSAGING. SHE IS CONFIDENTIAL AND HAS HAD NO VISITORS OR PHONE CALLS TO THE HOSPITAL. (OTHER THAN APS) PT IS CURRENTLY IN BED, CALL LIGHT IN REACH NO S&S OF DISTRESS NOTED, WILL PASS ON TO NIGHT RN IN BEDSIDE REPORT.
[2025-02-07 16:21] VITALS: BP 139/68
[2025-02-07 20:36] VITALS: BP 128/63
[2025-02-08 03:04] VITALS: BP 124/57
--- NOTE | 2025-02-08 04:48 | NUR ---
GAMING TABLE OPERATOR SUMMARY: PT A&O X3. QUIET AND WITHDRAWN. INDEPENDENT WITH BED MOBILITY. INCONTINENT OF BLADDER THIS SHIFT. NO ACUTE CHANGES / EVENTS T/O SHIFT. BED IN LOWEST POSITION. CALL LIGHT IN REACH. CARES ONGOING ORDERED.
[2025-02-08 05:46] LABS: Hematocrit 26.9 % (33.0-51.0); Hemoglobin 8.5 g/dL (11.5-16.0); Mean Corpuscular HGB 28.4 pg (26.0-34.0); Mean Corpuscular HGB Conc 31.6 g/dL (31.5-36.5); Mean Corpuscular Volume 90 fL (80-100); Mean Platelet Volume 8.6 fL (9.1-12.4); Platelet Count 324 K/mm3 (150-400); RDW Coefficient Variation 14.6 % (11.7-14.2); RDW Standard Deviation 45.1 fL (35.1-46.3); Red Blood Cell Count 2.99 M/mm3 (3.80-5.20); White Blood Cell Count 7.48 K/mm3 (4.00-11.30)
[2025-02-08 06:16] LABS: Bun/Creatinine Ratio 54.7 (12.0-20.0); Calcium, Blood 8.1 mg/dL (8.5-10.1); Creatinine, Blood 1.17 mg/dL (0.40-1.00); Potassium, Blood 4.4 mmol/L (3.5-5.5)
--- NOTE | 2025-02-08 07:02 | NUR ---
assumed care of pt- Bedside report completed with night rn Dianne. Pt sleeping soundly. Per report pt was incontinent of bladder t/o the night requiring full bed and linen change. Purewick cath was placed at the end of fire control technician b.
[2025-02-08 07:21] VITALS: BP 133/60
--- NOTE | 2025-02-08 14:32 | NUR ---
SHIFT SUMMARY- PT ALERT AND ORIENTED, 1PA WITH TRANSFERS WITH 4WW AND GAIT BELT. SHE HAS HAD NO ACUTE CHANGE T/O THE SHIFT. MARSHA YORK'Ronald AT THE START OF THE SHIFT. PT INCONTINENT OF BLADDER, FREQUENT CHANGES PERFORMED T/O THE SHIFT. PT CURRENTLY IN BED, CALL LIGHT IN REACH NO S&S OF DISTRESS NOTED. WILL CTM AND PASS ON TO NIGHT RN IN BEDSIDE REPORT.
[2025-02-08 16:33] VITALS: BP 128/63
[2025-02-08 17:01] VITALS: BP 120/57
[2025-02-08 20:25] VITALS: BP 110/69
[2025-02-08] MEDS ORDERED: Docusate Sodium/Senna 1 Tab PO SCH (21:00)
--- NOTE | 2025-02-09 03:27 | NUR ---
LEARNING SUPPORT ASSISTANT SUMMARY: PT A&O X3-4. PT UNMOTIVATED TO PARTICIPATE IN CARE. NO ACUTE DISTRESS / CHANGES T/O NIGHT. MEDICATED X1 FOR LOW BACK PAIN PER EMAR ORDER; EFFECTIVE. PT IS 1 PERSON SBA FOR TRANSFERS WITH FWW. INDEPENDENT WITH BED MOBILITY. INCONTINENT OF BLADDER AT NIGHT. OCCASIONAL BOWEL INCONTINENCE. BED IN LOWEST POSITION. CALL LIGHT IN REACH. CARES ONGOING ORDERED. AWAITING PLACEMENT.
[2025-02-09 04:37] VITALS: BP 112/56
[2025-02-09 07:08] VITALS: BP 134/61
--- NOTE | 2025-02-09 16:12 | NUR ---
SHIFT SUMMARY- PT ALERT AND ORIENTED TO SELF. SHE WAS UP IN CHAIR FOR MEALS TODAY AND SHE WAS UP INTO THE BATHROOM AND HAD A LARGE STOOL. SHE AMBULATED IN THE ROOM WITH ASSISTANCE. PT IS CURRENTLY IN BED, CALL LIGHT IN REACH NO S&S OF DISTRESS NOTED. WILL PASS ON IN BEDSIDE REPORT TO NIGHT RN.
[2025-02-09 16:18] VITALS: BP 121/53
[2025-02-09 20:22] VITALS: BP 128/67
[2025-02-10 02:17] VITALS: BP 134/64
--- NOTE | 2025-02-10 04:48 | NUR ---
SHIFT SUMMARY NOC PT A/O X 3-4. UNMOTIVATED BUT PLEASANT AND COOPERATIVE WITH CARE. VSS. NO ACUTE CHANGES TO REPORT. PT MEDICATED PER EMAR FOR LOWER BACK PAIN. PUREWICK IN PLACE AT NIGHT DUE TO INCONTINENCE. PT AWAITING [facility] MEDICAID APPROVAL FOR POSSIBLE PLACEMENT AT [facility]. PT CURRENTLY RESTING WITH BED IN LOWEST POSITION, AND CALL LIGHT WITHIN REACH.
[2025-02-10 07:56] VITALS: BP 148/66
[2025-02-10 15:04] VITALS: BP 130/56
--- NOTE | 2025-02-10 19:01 | NUR ---
SHIFT SUMMARY PT IS A/OX3-4. NO ACUTE CHANGES THROUGHOUT THIS SHIFT. PT ENCOURAGE TO GET UP TO CHAIR WITH MEALS. PT UP WITH SBA. EATING LITTLE THROUGHOUT THIS SHIFT. PT CALLS APPROPRIATELY USING THE CALL LIGHT.
[2025-02-10 19:52] VITALS: BP 138/74
[2025-02-11 02:54] VITALS: BP 143/69
--- NOTE | 2025-02-11 06:09 | NUR ---
SHIFT SUMMARY NOC PT A/O X 3-4. PLEASANT AND COOPERATIVE WITH CARE. PT STATES THAT THEY JUST WANT TO SLEEP. VSS. HS CBG 181 WITH SCHEDULED 15 UNITS GLARGINE GIVEN PER EMAR. PT PT AWAITING ACCEPTANCE AT [facility], [facility] MEDICAID APPROVAL, AND [employer]. PT CURRENTLY RESTING WITH BED ALARM ON, BED IN LOWEST POSITION, AND CALL LIGHT WITHIN REACH.
[2025-02-11 07:48] VITALS: BP 139/66
--- NOTE | 2025-02-11 16:31 | NUR ---
SHIFT SUMMARY PT CONT LEVEL OF CARE WITH NO ACUTE CHANGES NOTED. PT CONT TO AWAIT ON [facility] MEDICAID APPROVAL AND PLACEMENT.
[2025-02-11 17:14] VITALS: BP 133/71
[2025-02-11 19:58] VITALS: BP 132/64
--- NOTE | 2025-02-12 04:50 | NUR ---
PT A&O X3, PT INCONTINENT OF B&B, WITH X1 LOOSE STOOL ON THIS SHIFT, WAS RELAYED TO THIS SHIFT THAT SHE HAD MULTIPLE LOOSE STOOLS ON DAYS, CDIFF ORDERED PER PROTOCOL, THEN NO STOOL AFTER THAT. PT NONCOMPLIANT WITH SELF CARES, DOES NOT WILLINGLY PARTICIPATE IN BED MOBILITY, DOES NOT CALL WHEN HAS A INCONTINENT EPISODE. VS WNL, CBG 216 ONLY RECIEVED LONG ACTING INSULIN. CONTINUE TO AWAIT MEDICAID APPROVAL AND THEN TX TO SNF.
[2025-02-12 04:52] VITALS: BP 137/70
[2025-02-12 07:07] VITALS: BP 162/85
[2025-02-12 14:55] VITALS: BP 105/50
--- NOTE | 2025-02-12 18:26 | NUR ---
ASSUMED CARE OF PT UNEVENTFUL DAY FOR PT TODAY. PT IS AWAITING APROVAL FOR TANSFER TO CARE FACILITY. PT WAS ENC TO SIT UP IN CHAIR FOR ALL MEALS AND THOUGH SHE IS RESISTANT SHE HAS AGREED TO BE COOPERATIVE WITH CARE.
[2025-02-12 19:29] VITALS: BP 109/60
[2025-02-13 04:11] VITALS: BP 106/56
--- NOTE | 2025-02-13 04:38 | NUR ---
PT A&O X3, UP TO CHAIR DURING DAY, SLEEPS WELL, INCONTINENT OF B&B, VS WNL. NO OTHER CHANGES, CONTINUES TO AWAIT MEDICAID APPROVAL.
[2025-02-13 07:18] VITALS: BP 136/57
[2025-02-13 15:02] VITALS: BP 114/61
--- NOTE | 2025-02-13 16:36 | NUR ---
ASSUMED CARE. UNEVENTFUL DAY FOR PT. PT WAS ASSISED TO CHAIR FOR MEALS AND BACK TO BED. NO C/O PAIN NO DISTRESS, PT AWAITING SAW TAILER CAER ACCEPTENCE.
[2025-02-13 19:57] VITALS: BP 127/72
[2025-02-14 04:43] VITALS: BP 140/74
--- NOTE | 2025-02-14 05:15 | NUR ---
NO CHANGE IN PT THIS PAST 24 HRS, STILL AWAITING PLACEMENT.
[2025-02-14 07:57] VITALS: BP 126/78
--- NOTE | 2025-02-14 15:59 | NUR ---
ASSUMED CARE PT IS A/O X 2 TODAY VERY PLEASENT AND IS ABLE TO MAKE NEEDS KNOWN. PT WAS ASSISTED TO CHAIR FOR [facility] AND WAS ABLE TO FEED SELF. 0930 PT REQUESTED TO GO BACK TO BED PT REFUSED NOON GLUCO CHECK AND DID NOT WANT TO EAT OR GET OUT OF BED, PT STATED SHE WOULD FOR DINNER AND JUST WANTED TO SLEEP, MD NOTIFIED AND PT MEDS WILL BE REEVALUATED .
[2025-02-14 16:04] VITALS: BP 106/56
[2025-02-14 19:59] VITALS: BP 130/66
[2025-02-14] MEDS ORDERED: Mirtazapine 15 MG SoluTab PO SCH (21:00)
[2025-02-15 02:55] VITALS: BP 141/69
[2025-02-15] MEDS ORDERED: Bisacodyl 10 MG Supp PR PRN (04:35)
[2025-02-15 07:29] VITALS: BP 156/68
[2025-02-15 15:11] VITALS: BP 117/66
--- NOTE | 2025-02-15 18:11 | NUR ---
SHIFT SUMMARY PT AOX3, FORGETFUL AT TIMES. LITTLE MOTIVATION BUT WORKS WELL WHEN ENCOURAGED. UP TO THE CHAIR TODAY, SPENT MOST OF THE AFTERNOON IN THE CHAIR AND TOLERATED IT WELL. CALLS AND MAKES HER NEEDS KNOWN. RESPOSITIONS SELF IN BED. INCONTINENT. LARGE BM THIS SHIFT. NO ACUTE ISSUES. CALL LIGHT WITHIN REACH, BED LOCKED AND IN THE LOWEST POSITION. WILL REPORT TO ONCOMING NURSE.
[2025-02-15 19:29] VITALS: BP 124/72
[2025-02-16 02:57] VITALS: BP 136/72
[2025-02-16 07:34] VITALS: BP 133/62
--- NOTE | 2025-02-16 09:55 | NUR ---
PATIENT PRESSED HER CALL BUTTON STATING THAT SHE HAD TO GO TO THE BATHROOM. UPON THE WHITE BOARD STATES SHE IS A ONE PERSON ASSIST WITH FWW WITH BATHROOM PRIVILEGES. WITH SOME ASSISTANCE, PATIENT WAS ABLE TO STAND UP AND HOLD ON TO HER WALKER. I HELD ON TO HER GOWN AND FOLLOWED HER TO THE BATHROOM. SHE MUST HAVE CHANGED HER MIND SHE STOPPED WALKING AND STARTED TO WALK BACKWARDS. I FELT HER STARTING TO SIT DOWN ON THE FLOOR SO I HELD HER AND GENTLY SAT HER DOWN ON THE FLOOR.
--- NOTE | 2025-02-16 10:00 | NUR ---
NOTE: THIS NURSE HEARD THE COUNSEL TALKING TO THE PT, THIS NURSE THEN WENT INTO THE ROOM AND OBSERVED THE PT SITTING ON THE GROUND ON HER BOTTOM. SEE COUNSEL NOTE FROM THE INCIDIENT. THE PT WAS ASSISTED BACK UP TO THE CHAIR. ASSESSMENT COMPLETED AND NO CHANGES OR NEW INJURIES. THE PT SAID SHE WAS IS NO PAIN AND DID NOT HAVE ANY COMPLAINTS. SHE WAS ABLE TO ADJUST HERSELF BACK IN THE BED WITH OUR HELP. DR. CANALES NOTIFIED, CHARGE NURSE NOTIFIED.
[2025-02-16 12:48] LABS: Source, Urine Straight Cath
[2025-02-16 12:56] LABS: Appearance, Urine Hazy (Clear); Bilirubin, Urine Neg (Neg); Blood, Urine 3+ (Neg); Glucose Qualitative, Urine Neg (Neg); Ketones, Urine Neg (Neg); Leukocyte Esterase, Urine 3+ (Neg); Nitrite, Urine Neg (Neg); Protein, Urine 3+ (Neg); Urobilinogen, Urine NORM (Normal)
[2025-02-16 13:07] LABS: Color, Urine Pale Yellow (P-Yellow)
[2025-02-16 13:08] LABS: Bacteria Many /hpf; Red Blood Cells, Urine 0-2 /hpf (0-2); Squamous Epithelial Cells Not Seen /hpf (Few); White Blood Cells, Urine 50-100 /hpf (0-5)
[2025-02-16 17:11] VITALS: BP 108/51
--- NOTE | 2025-02-16 17:16 | NUR ---
SHIFT SUMMARY PT AOX3, 2P ASSIST TO THE CHAIR. SEE OTHER NOTE ABOUT SOFT FALL THIS SHIFT. LAW PLACED THIS SHIFT. MEDICATED FOR PAIN PER THE EMAR. CALLS. THANH WAS DIFFICULT TO PLACE, DR. CANALES AWARE. BRIEF CHANGED NEEDED. BOWEL CARE MEDCIATIONS GIVEN PER THE EMAR. CALL LIGHT WITHIN REACH, BED LOCKED AND IN THE LOWEST POSITION. WILL REPORT TO ONCOMING NURSE.
[2025-02-16 19:56] VITALS: BP 131/64
[2025-02-17 03:40] VITALS: BP 101/56
--- NOTE | 2025-02-17 04:55 | NUR ---
NO CHANGES IN PAST SEVERAL DAYS WITH EXCEPTION OF CONSTIPATIN WHICH HAS RESOLVED, AND PT HAS INCREASED WEAKNESS AND HAD A ASSISTED FALL ON 02/16, NO INJURY NOTED. USES CALL SYSTEM APPROPRIATELY. THANH WITH ABOVE AVERAGE UOP. STILL AWAITING MEDICAID APPROVAL.
[2025-02-17 05:44] LABS: Bun/Creatinine Ratio 77.1 (12.0-20.0); Calcium, Blood 8.6 mg/dL (8.5-10.1); Creatinine, Blood 1.31 mg/dL (0.40-1.00); Potassium, Blood 5.2 mmol/L (3.5-5.5)
[2025-02-17 06:41] LABS: BASOPHILS ABSOLUTE AUTO 0.05 K/mm3 (0.00-0.23); BASOPHILS PERCENT AUTO 1 % (0-2); EOSINOPHILS ABSOLUTE AUTO 0.15 K/mm3 (0.00-0.68); EOSINOPHILS PERCENT AUTO 2 % (0-6); Hematocrit 30.4 % (33.0-51.0); Hemoglobin 9.7 g/dL (11.5-16.0); IMMATURE GRAN ABSOLUTE AUTO 0.03 K/mm3 (0.00-0.10); IMMATURE GRAN PERCENT AUTO 0 % (0-1); LYMPHOCYTES ABSOLUTE AUTO 3.51 K/mm3 (0.84-5.20); LYMPHOCYTES PERCENT AUTO 46 % (21-46); MONOCYTES ABSOLUTE AUTO 0.72 K/mm3 (0.16-1.47); MONOCYTES PERCENT AUTO 9 % (4-13); Mean Corpuscular HGB 29.2 pg (26.0-34.0); Mean Corpuscular HGB Conc 31.9 g/dL (31.5-36.5); Mean Corpuscular Volume 92 fL (80-100); Mean Platelet Volume 8.5 fL (9.1-12.4); NEUTROPHILS ABSOLUTE AUTO 3.18 K/mm3 (1.96-9.15); NEUTROPHILS PERCENT AUTO 42 % (41-73); Platelet Count 405 K/mm3 (150-400); RDW Coefficient Variation 16.7 % (11.7-14.2); RDW Standard Deviation 55.6 fL (35.1-46.3); Red Blood Cell Count 3.32 M/mm3 (3.80-5.20); White Blood Cell Count 7.64 K/mm3 (4.00-11.30)
[2025-02-17 07:23] VITALS: BP 115/63
[2025-02-17] MEDS ORDERED: CefTRIAXone Sodium 1,000 MG in NS 100 ML IV SCH (10:21)
[2025-02-17] MEDS ORDERED: NS 250 ML IV PRN (10:25)
[2025-02-17] MEDS ORDERED: NS 1,000 ML IV SCH (10:50)
[2025-02-17] MEDS ORDERED: Ciprofloxacin 500 MG Tab PO SCH (11:00)
[2025-02-17 15:17] VITALS: BP 112/58
--- NOTE | 2025-02-17 17:53 | NUR ---
SHIFT SUMMARY AOX3, 1 ASSIST WITH THE FWW TO THE CHAIR. LAW IN PLACE AND PATENT. PLAN IS TO [facility]GE TO [facility]. MEDICATED FOR BACK PAIN THIS SHIFT. NO ACUTE CHANGES. REPOSITIONS SELF IN BED. CALL LIGHT WITHIN REACH, BED LOCKED AND IN THE LOWEST POSITION. WILL REPORT TO ONCOMING NURSE.
[2025-02-17 19:13] VITALS: BP 108/59
[2025-02-17] MEDS ORDERED: Mirtazapine 30 MG SoluTab PO SCH (21:00)
[2025-02-17] MEDS ORDERED: Lactobacil 2-S.Thermo-Bifido 1 1 Cap PO SCH (21:00)
--- NOTE | 2025-02-17 22:00 | NUR ---
PT RESTING QUIETLY LYING ON LEFT SIDE. NO NEEDS. CALL LT IN REACH.
--- NOTE | 2025-02-18 00:21 | NUR ---
PT RESTING QUIETLY. NS INFUSING AT 100 MLS/HR WITHOUT DIFFICULTY. CALL LT IN REACH.
--- NOTE | 2025-02-18 01:49 | NUR ---
PT CONTINUES TO REST QUIETLY. CALL LT IN REACH.
--- NOTE | 2025-02-18 04:01 | NUR ---
PT RESTING QUIETLY. CALL LT IN REACH.
--- NOTE | 2025-02-18 04:14 | NUR ---
SHIFT SUMMARY: A/O X 3. ABLE TO ANSWER QUESTIONS APPROPRIATELY, STATES NEEDS APPROPRIATELY. ON RA. LAW FOR RETENTION PATENT AND DRAINING PALE YELLOW, CLOUDY URINE WITH SEDIMENT. NS AT 100 MLS/HR PER EMAR ORDER. TAKES MEDS WHOLE WITH WATER WITHOUT DIFFICULTY. 1PA FROM RECLINER CHAIR TO BED. REDNESS TO ELIZA AND SACRAL AREA IMPROVING WITH NYSTATIN AND BARRIER CREAM. NO ACUTE CHANGES. PLAN IS TO DISCHARGE AT 11:00 AM TO [facility]. WILL CONTINUE TO PROVIDE CARE UNTIL SHIFT REPORT TO ONCOMING NURSE. CALL LT IN REACH.
[2025-02-18 04:18] VITALS: BP 111/62
[2025-02-18 05:49] LABS: BASOPHILS ABSOLUTE AUTO 0.05 K/mm3 (0.00-0.23); BASOPHILS PERCENT AUTO 1 % (0-2); EOSINOPHILS ABSOLUTE AUTO 0.19 K/mm3 (0.00-0.68); EOSINOPHILS PERCENT AUTO 2 % (0-6); Hematocrit 29.5 % (33.0-51.0); Hemoglobin 9.4 g/dL (11.5-16.0); IMMATURE GRAN ABSOLUTE AUTO 0.03 K/mm3 (0.00-0.10); IMMATURE GRAN PERCENT AUTO 0 % (0-1); LYMPHOCYTES PERCENT AUTO 47 % (21-46); MONOCYTES ABSOLUTE AUTO 0.74 K/mm3 (0.16-1.47); MONOCYTES PERCENT AUTO 9 % (4-13); Mean Corpuscular HGB 29.3 pg (26.0-34.0); Mean Corpuscular HGB Conc 31.9 g/dL (31.5-36.5); Mean Corpuscular Volume 92 fL (80-100); Mean Platelet Volume 8.8 fL (9.1-12.4); NEUTROPHILS ABSOLUTE AUTO 3.37 K/mm3 (1.96-9.15); NEUTROPHILS PERCENT AUTO 41 % (41-73); Platelet Count 377 K/mm3 (150-400); RDW Coefficient Variation 16.7 % (11.7-14.2); RDW Standard Deviation 55.6 fL (35.1-46.3); Red Blood Cell Count 3.21 M/mm3 (3.80-5.20); White Blood Cell Count 8.18 K/mm3 (4.00-11.30)
[2025-02-18 06:10] LABS: Bun/Creatinine Ratio 72.7 (12.0-20.0); Calcium, Blood 8.3 mg/dL (8.5-10.1); Creatinine, Blood 1.65 mg/dL (0.40-1.00); Potassium, Blood 4.8 mmol/L (3.5-5.5)
[2025-02-18 07:14] VITALS: BP 118/63
[2025-02-18] MEDS ORDERED: Acetaminophen650 M1 PO (08:37)
[2025-02-18] MEDS ORDERED: PANT20 PO (08:37)
[2025-02-18] MEDS ORDERED: ASCO500 PO (08:38)
[2025-02-18] MEDS ORDERED: BISA5EC PO (08:38)
[2025-02-18] MEDS ORDERED: CIPR250 PO (08:55)
[2025-02-18] MEDS ORDERED: DOCUZEN 8.6-501 EACH PO (08:55)
[2025-02-18] MEDS ORDERED: HUMALOG KW100 UNIT/1 SC (08:56)
[2025-02-18] MEDS ORDERED: LISI5 PO (08:56)
[2025-02-18] MEDS ORDERED: MIRT30 PO (08:57)
[2025-02-18] MEDS ORDERED: MIRALAX17 GM PO (08:59)
[2025-02-18] MEDS ORDERED: NYSTATIN15 GM TOP (08:59)
[2025-02-18] MEDS ORDERED: FERRIC X-150150 M1 PO (09:00)
[2025-02-18] MEDS ORDERED: VISBIOME 112.51 EACH PO (09:00)
[2025-02-18] MEDS ORDERED: PANT40 PO (09:01)
[2025-02-18] MEDS ORDERED: MIRT30ST PO (09:01)
--- NOTE | 2025-02-18 12:34 | NUR ---
DISCHARGE NOTE: PATIENT GOT READY AND BELONGINGS COLLECTED. IV AND LAW REMOVED. MEDICAL TRANSPORT ARRIVED VIA WHEELCHAIR FOR THE PATIENT. PATIENT WAS WHEELED DOWN WITH BELONGINGS WITH MEDICAL TRANSPORTER AND COLD STORAGE SUPERVISOR; PAPERWORK PROVIDED. NO SIGNS OR SYMPTOMS OF DISTRESS WITH DISCHARGE.
== END 2025-02-18 12:42 | disposition home or self-care (01) | DRG 871 ==
LOC: ER 02:18 → MEDS 02:19 → ER 02:19 → MEDS 09:28 → ENPENDDIS 02-18 10:57 → MEDS 02-18 12:42
PROVIDERS: Emergency Medicine; Internal Medicine; ADMIT Internal Medicine
DX: A41.59 Other Gram-negative sepsis (principal); G93.41 Metabolic encephalopathy; N39.0 Urinary tract infection, site not specified; Z59.01 Sheltered homelessness; F02.83 Dementia in other diseases classified elsewhere, unspecified severity, with mood disturbance; R33.9 Retention of urine, unspecified; E11.65 Type 2 diabetes mellitus with hyperglycemia; N18.30 Chronic kidney disease, stage 3 unspecified; G30.0 Alzheimer's disease with early onset; D50.9 Iron deficiency anemia, unspecified; E11.22 Type 2 diabetes mellitus with diabetic chronic kidney disease; E86.0 Dehydration; N20.0 Calculus of kidney; N28.1 Cyst of kidney, acquired; T38.3X6A Underdosing of insulin and oral hypoglycemic [antidiabetic] drugs, initial encounter; E88.09 Other disorders of plasma-protein metabolism, not elsewhere classified; E87.6 Hypokalemia; K59.00 Constipation, unspecified; Z91.138 Patient's unintentional underdosing of medication regimen for other reason; Z74.1 Need for assistance with personal care
CPT/HCPCS: 0241U; 36415; 71045; 76770; 80048; 80053; 80069; 81001; 82010; 82728; 82803; 82947; 83036; 83540; 83550; 83605; 83735; 83880; 84145; 85025; 85027; 87040; 87077; 87086; 87147; 87186; 93005; 93010; 94640; 94664; 94760; 96361; 96365; 96367; 96372; 96375; 96376; 97110; 97116; 97162; 97165; 97530; 99285-25; A9270; G0378; J0360; J0696; J1650; J1815; J2405; J2916; J7030; P9047

== ENCOUNTER 2025-02-27 19:49 | Emergency (ER) | payer OTHER ==
[~2025-02-27] VITALS: Ht 162.6 cm; Wt 72.6 kg
[~2025-02-27 19:49] MED LIST: ASCO500 PO; ATORVASTATIN CA20 MG PO; Acetaminophen650 M1 PO; BASAGLAR K100 UNIT/3 SC; BISA5EC PO; CIPR250 PO; DOCUZEN 8.6-501 EACH PO; FERRIC X-150150 M1 PO; HUMALOG KW100 UNIT/1 SC; LISI5 PO; METF500 PO; METO100ER PO; MIRALAX17 GM PO; MIRT30 PO; MIRT30ST PO; NORTRIPTYLINE H2512 PO; NYSTATIN15 GM TOP; PANT20 PO; PANT40 PO; PANTOPRAZOLE SO40 M2 PO; VISBIOME 112.51 EACH PO
== END 2025-02-27 20:09 | disposition home or self-care (01) ==
LOC: ER 19:49
DX: S50.311A Abrasion of right elbow, initial encounter (principal); E11.9 Type 2 diabetes mellitus without complications; W18.30XA Fall on same level, unspecified, initial encounter; Z79.899 Other long term (current) drug therapy; Z79.4 Long term (current) use of insulin; Z79.84 Long term (current) use of oral hypoglycemic drugs
CPT/HCPCS: 99283

== ENCOUNTER 2025-07-31 17:53 | Emergency (ER) | payer OTHER ==
[~2025-07-31] VITALS: Ht 162.6 cm; Wt 63.5 kg
[~2025-07-31 17:53] MED LIST changes: +AMLO5 PO; +AMOCLA875 PO; +FARXIGA10 MG PO; +INSULANPEN SC; +MELA3 PO; +MEROPENEM114 IV; +METO25ER PO; +OMEP20ER PO; +OXYC5 PO; +[UNRECOGNIZED DRUG - OTHER] PO
[2025-07-31] MEDS ORDERED: AMOCLA875 PO (21:05)
== END 2025-07-31 21:11 | disposition home or self-care (01) ==
LOC: ER 17:53
DX: T83.092A Other mechanical complication of nephrostomy catheter, initial encounter (principal); N20.0 Calculus of kidney; E11.9 Type 2 diabetes mellitus without complications; Z79.4 Long term (current) use of insulin; Z79.899 Other long term (current) drug therapy
CPT/HCPCS: 76705; 99284-25

== ENCOUNTER 2025-08-03 18:55 | Emergency (ER) | payer OTHER ==
[~2025-08-03] VITALS: Ht 162.6 cm; Wt 62.1 kg
[2025-08-03 19:18] LABS: BASOPHILS ABSOLUTE AUTO 0.07 K/mm3 (0.00-0.23); BASOPHILS PERCENT AUTO 0 % (0-2); EOSINOPHILS ABSOLUTE AUTO 0.05 K/mm3 (0.00-0.68); EOSINOPHILS PERCENT AUTO 0 % (0-6); Hematocrit 30.4 % (33.0-51.0); Hemoglobin 9.7 g/dL (11.5-16.0); IMMATURE GRAN ABSOLUTE AUTO 0.11 K/mm3 (0.00-0.10); IMMATURE GRAN PERCENT AUTO 1 % (0-1); LYMPHOCYTES ABSOLUTE AUTO 2.10 K/mm3 (0.84-5.20); LYMPHOCYTES PERCENT AUTO 13 % (21-46); MONOCYTES ABSOLUTE AUTO 1.05 K/mm3 (0.16-1.47); MONOCYTES PERCENT AUTO 6 % (4-13); Mean Corpuscular HGB Conc 31.9 g/dL (31.5-36.5); Mean Corpuscular Volume 90 fL (80-100); NEUTROPHILS ABSOLUTE AUTO 13.23 K/mm3 (1.96-9.15); NEUTROPHILS PERCENT AUTO 80 % (41-73); NRBC ABSOLUTE 0.00 K/mm3 (0.00-0.02); NRBC Auto 0.0 /100 WBC (0.0-0.2); Platelet Count 351 K/mm3 (150-400); RDW Coefficient Variation 12.9 % (11.7-14.2); RDW Standard Deviation 42.3 fL (35.1-46.3)
[2025-08-03 19:55] LABS: Alanine Aminotransfer (ALT/SGP 19.0 U/L (12-78); Albumin, Blood 2.4 g/dL (3.4-5.0); Albumin/Globulin Ratio 0.5 (0.8-1.8); Anion Gap 8.0 mmol/L (3-11); Aspartate Aminotrans (AST/SGOT 15.0 U/L (12-37); Bilirubin, Total 0.6 mg/dL (0.1-1.0); Blood Urea Nitrogen 24.0 mg/dL (8-24); CO2, Blood 26.0 mmol/L (21-32); Calcium, Blood 8.3 mg/dL (8.5-10.1); Chloride, Blood 105.0 mmol/L (98-108); Creatinine, Blood 1.48 mg/dL (0.40-1.00); Globulin, Blood 4.6 g/dL (2.2-4.0); Glucose, Blood 130.0 mg/dL (70-99); Potassium, Blood 3.9 mmol/L (3.5-5.5); Sodium, Blood 135.0 mmol/L (136-145); Total Protein, Blood 7.0 g/dL (6.4-8.2)
[2025-08-04 01:02] LABS: Source, Urine Clean Catch
[2025-08-04 02:17] LABS: Bilirubin, Urine Neg (Neg); Glucose Qualitative, Urine 4+ (Neg); Ketones, Urine Neg (Neg); Leukocyte Esterase, Urine 3+ (Neg); Protein, Urine 3+ (Neg); Specific Gravity, Urine 1.015 (1.003-1.022); Urobilinogen, Urine NORM (Normal)
[2025-08-04 02:26] LABS: Color, Urine Yellow (P-Yellow)
[2025-08-04 02:27] LABS: Red Blood Cells, Urine 0-2 /hpf (0-2); White Blood Cells, Urine TNTC /hpf (0-5); Yeast/Fungi Urine Many /hpf
== END 2025-08-04 03:13 | disposition home or self-care (01) ==
LOC: ER 18:55
PROVIDERS: Emergency Medicine
DX: E11.22 Type 2 diabetes mellitus with diabetic chronic kidney disease (principal); N17.9 Acute kidney failure, unspecified; N18.9 Chronic kidney disease, unspecified; D63.1 Anemia in chronic kidney disease; Z93.6 Other artificial openings of urinary tract status; E78.5 Hyperlipidemia, unspecified
CPT/HCPCS: 74177; 80053; 81001; 83605; 85025; 93005; 93010; 99284-25; Q9967

== ENCOUNTER 2025-08-17 19:48 | Emergency (ER) | payer OTHER ==
[~2025-08-17] VITALS: Ht 165.1 cm; Wt 63.5 kg
[2025-08-17 21:50] LABS: BASOPHILS ABSOLUTE AUTO 0.08 K/mm3 (0.00-0.23); BASOPHILS PERCENT AUTO 1 % (0-2); EOSINOPHILS ABSOLUTE AUTO 0.44 K/mm3 (0.00-0.68); EOSINOPHILS PERCENT AUTO 5 % (0-6); Hematocrit 32.4 % (33.0-51.0); Hemoglobin 10.3 g/dL (11.5-16.0); IMMATURE GRAN ABSOLUTE AUTO 0.07 K/mm3 (0.00-0.10); IMMATURE GRAN PERCENT AUTO 1 % (0-1); LYMPHOCYTES ABSOLUTE AUTO 2.58 K/mm3 (0.84-5.20); LYMPHOCYTES PERCENT AUTO 28 % (21-46); MONOCYTES ABSOLUTE AUTO 0.57 K/mm3 (0.16-1.47); MONOCYTES PERCENT AUTO 6 % (4-13); Mean Corpuscular HGB Conc 31.8 g/dL (31.5-36.5); Mean Corpuscular Volume 89 fL (80-100); NEUTROPHILS ABSOLUTE AUTO 5.55 K/mm3 (1.96-9.15); NEUTROPHILS PERCENT AUTO 60 % (41-73); NRBC ABSOLUTE 0.00 K/mm3 (0.00-0.02); NRBC Auto 0.0 /100 WBC (0.0-0.2); Platelet Count 310 K/mm3 (150-400); RDW Coefficient Variation 12.5 % (11.7-14.2); RDW Standard Deviation 41.1 fL (35.1-46.3)
[2025-08-17 22:05] LABS: Alanine Aminotransfer (ALT/SGP 12.0 U/L (12-78); Albumin, Blood 2.5 g/dL (3.4-5.0); Albumin/Globulin Ratio 0.5 (0.8-1.8); Anion Gap 6.0 mmol/L (3-11); Aspartate Aminotrans (AST/SGOT 12.0 U/L (12-37); Bilirubin, Total 0.3 mg/dL (0.1-1.0); Blood Urea Nitrogen 21.0 mg/dL (8-24); CO2, Blood 27.0 mmol/L (21-32); Calcium, Blood 8.7 mg/dL (8.5-10.1); Chloride, Blood 108.0 mmol/L (98-108); Creatinine, Blood 1.49 mg/dL (0.40-1.00); Globulin, Blood 5.1 g/dL (2.2-4.0); Glucose, Blood 206.0 mg/dL (70-99); Magnesium, Blood 2.2 mg/dL (1.6-2.4); Potassium, Blood 4.3 mmol/L (3.5-5.5); Sodium, Blood 137.0 mmol/L (136-145); Total Protein, Blood 7.6 g/dL (6.4-8.2)
== END 2025-08-17 23:40 | disposition home or self-care (01) ==
LOC: ER 19:48
PROVIDERS: Student in an Organized Health Care Education/Training Program
DX: Z03.89 Encounter for observation for other suspected diseases and conditions ruled out (principal); I12.9 Hypertensive chronic kidney disease with stage 1 through stage 4 chronic kidney disease, or unspecified chronic kidney disease; E11.22 Type 2 diabetes mellitus with diabetic chronic kidney disease; N18.31 Chronic kidney disease, stage 3a; E78.5 Hyperlipidemia, unspecified; K21.9 Gastro-esophageal reflux disease without esophagitis; Z93.6 Other artificial openings of urinary tract status; Z79.4 Long term (current) use of insulin; Z79.899 Other long term (current) drug therapy
CPT/HCPCS: 74177; 80053; 83735; 85025; 99284-25; Q9967

== ENCOUNTER → 2025-08-31 | Outpatient (CLI) | payer OTHER | LOC: LAB 15:12 → LAB SHORT 15:12 | DX: R82.998 Other abnormal findings in urine (principal) | CPT/HCPCS: 87086 ==

== ENCOUNTER 2025-09-09 08:48 | Day surgery (SDC) | payer OTHER ==
[~2025-09-09] VITALS: Ht 162.6 cm; Wt 63.8 kg
[2025-09-09] VITALS (9 sets, daily range): BP systolic 102–154; BP diastolic 49–81
[~2025-09-09 08:48] MED LIST changes: +CULTURELLE KID1 EA13 PO; +Norco 5-325 Ta1 EACH PO
[2025-09-09] MEDS ORDERED: CefOXitin Sodium 2,000 MG in NS 100 ML IV SCH (09:15)
--- NOTE | 2025-09-09 10:16 | NUR ---
History, Chart, Medications and Allergies reviewed before start of procedure. Lungs clear T/O to Auscultation. Patient confirms NPO status and agrees with scheduled surgery. Pre-Op teaching done. Pt verbalizes understanding. Patient States Post-Procedure ride home has been arranged. Patient reports completing Chlorhexadine shower X2 prior to admission to hospital.
[2025-09-09] MEDS ORDERED: FentaNYL Citrate 50 MCG/ML 2 ML Injection ONE (10:29)
[2025-09-09] MEDS ORDERED: Ondansetron HCl 2 MG / ML 2ML Vial ONE (10:45)
[2025-09-09] MEDS ORDERED: Dexamethasone Sod Phos 10 MG/ML 1ML VIAL ONE (10:45)
[2025-09-09] MEDS ORDERED: HYDROmorphone HCl/Pf 1MG SYR IV PRN ×2 (11:00)
[2025-09-09] MEDS ORDERED: Albuterol 2.5 MG/3 ML VIAL INH PRN (11:00)
[2025-09-09] MEDS ORDERED: Metoclopramide HCl 5MG / ML 2ML Vial IV PRN (11:00)
[2025-09-09] MEDS ORDERED: FentaNYL Citrate 50 MCG/ML 2 ML Injection IV PRN ×2 (11:00→11:05)
[2025-09-09 11:44] LABS: Source, Urine Nephrostomy
[2025-09-09 11:48] LABS: Bilirubin, Urine Neg (Neg); Glucose Qualitative, Urine Neg (Neg); Ketones, Urine Neg (Neg); Leukocyte Esterase, Urine 3+ (Neg); Protein, Urine 3+ (Neg); Specific Gravity, Urine 1.010 (1.003-1.022); Urobilinogen, Urine NORM (Normal)
[2025-09-09 12:01] LABS: Color, Urine Pale Yellow (P-Yellow)
[2025-09-09 12:02] LABS: White Blood Cells, Urine TNTC /hpf (0-5)
--- NOTE | 2025-09-09 13:01 | NUR ---
Discharge instructions reviewed with patient. Patient verbalizes understanding. Copy given to patient to take home. Prescription placed in discharge folder. Pt lives in assisted living, picked up by medical transport back to facility. Discharged via wheelchair to private car for ride home.
--- NOTE | 2025-09-09 13:22 | NUR ---
SPOKE WITH PATRICIA AT [facility]. REPORT GIVEN OF CARE AT [facility] SURGERY WITH VERBALIZED UNDERSTANDING. WRITTEN INFORMATION SENT WITH PATIENT.
== END 2025-09-09 13:00 | disposition home or self-care (01) ==
LOC: ORSCSDS 08:48 → ORSCMMR 08:48 → ORSCSDS 13:00
PROVIDERS: Urology
PROC: 0T778DZ Dilation of Left Ureter with Intraluminal Device, Via Natural or Artificial Opening Endoscopic (ICD-10-PCS; principal; 2025-09-09 10:00)
PROC: 0TF48ZZ Fragmentation in Left Kidney Pelvis, Via Natural or Artificial Opening Endoscopic (ICD-10-PCS; principal; 2025-09-09 10:00)
DX: N13.2 Hydronephrosis with renal and ureteral calculous obstruction (principal); I12.9 Hypertensive chronic kidney disease with stage 1 through stage 4 chronic kidney disease, or unspecified chronic kidney disease; E11.22 Type 2 diabetes mellitus with diabetic chronic kidney disease; N18.9 Chronic kidney disease, unspecified; K21.9 Gastro-esophageal reflux disease without esophagitis; E78.5 Hyperlipidemia, unspecified; G30.9 Alzheimer's disease, unspecified; F02.80 Dementia in other diseases classified elsewhere, unspecified severity, without behavioral disturbance, psychotic disturbance, mood disturbance, and anxiety; Z79.4 Long term (current) use of insulin; Z79.899 Other long term (current) drug therapy
CPT/HCPCS: 81001; 82947; 87086; C1758; C1769; C2617; J0694; J1100; J2405; J2704; J3010; J7120